=== PATIENT | male | born 2000 | race Two or more races ===

== ENCOUNTER 2023-05-04 00:53 | Emergency (ER) | payer MEDICAID ==
[~2023-05-04] VITALS: Ht 157.5 cm; Wt 56.0 kg
[2023-05-04 00:57] VITALS: TEMP 98.7
[2023-05-04 02:54] LABS: APPEARANCE,URINE CLEAR (CLEAR); BILIRUBIN,URINE NEGATIVE (NEGATIVE); GLUCOSE, URINE (UA) NEGATIVE (NEGATIVE); KETONES,URINE NEGATIVE (NEGATIVE); LEUKOCYTE ESTERASE ,URINE NEGATIVE (NEGATIVE); NITRATE,URINE NEGATIVE (NEGATIVE); OCCULT BLOOD,URINE NEGATIVE (NEGATIVE); PROTEIN,URINE NEGATIVE (NEGATIVE); SPECIFIC GRAVITIY, URINE 1.021 (1.003-1.030); UROBILINOGEN,URINE <=1.0 mg/dL (<=1.0)
[2023-05-04] MEDS ORDERED: IBUP-1492 PO (03:24)
[2023-05-04] MEDS ORDERED: LEVO-72 PO (03:24)
[2023-05-04] MEDS ORDERED: IBUPROFEN 600 MG TABLET PO ONE (03:30)
[2023-05-04] MEDS ORDERED: LEVOFLOXACIN 500 MG TABLET PO ONE (03:30)
[2023-05-04 03:37] VITALS: BP 138/70; PULSE 78; RESP 18
== END 2023-05-04 03:39 | disposition home or self-care (01) ==
LOC: EMS 00:54
DX: N45.1 Epididymitis (principal); F12.90 Cannabis use, unspecified, uncomplicated; Z88.8 Allergy status to other drugs, medicaments and biological substances
CPT/HCPCS: 81003; 87430; 87491; 87591; 99283

== ENCOUNTER 2023-05-13 21:18 | Emergency (ER) | payer MEDICAID ==
[~2023-05-13 21:18] MED LIST: IBUP-1492 PO; LEVO-72 PO
== END 2023-05-13 21:19 | disposition left against medical advice (07) ==
LOC: EMS 21:19
DX: Z53.21 Procedure and treatment not carried out due to patient leaving prior to being seen by health care provider (principal)

== ENCOUNTER 2023-12-08 10:29 | Emergency (ER) | payer MEDICAID ==
[~2023-12-08] VITALS: Ht 157.5 cm; Wt 68.2 kg
[2023-12-08 12:58] LABS: BASOPHILS % (AUTO) 1.4 % (0.0-2.0); EOSINOPHILS % (AUTO) 1.4 % (1.0-6.0); HEMATOCRIT 47.9 % (41-53); HEMOGLOBIN 15.7 g/dL (13.5-17.5); LYMPHOCYTES # (AUTO) 1.8 K/uL (1.0-4.8); LYMPHOCYTES % (AUTO) 40.3 % (22.0-44.0); MEAN CORPUSCULAR HEMOGLOBIN 29.5 pg (26.0-34.0); MEAN CORPUSCULAR HGB CONC 32.7 G/dL (31.0-37.0); MEAN CORPUSCULAR VOLUME 90 fL (80-100); MONOCYTES # (AUTO) 0.4 K/uL (0.1-1.0); MONOCYTES % (AUTO) 8.5 % (2.0-9.0); NEUTROPHILS # (AUTO) 2.2 K/uL (1.8-7.7); NEUTROPHILS % (AUTO) 48.4 % (40.0-70.0); PLATELET COUNT (AUTO) 210 K/uL (150-450); RED BLOOD CELL COUNT(AUTO) 5.32 MIL/uL (4.50-5.90); RED CELL DISTRIBUTION WIDTH 13.1 % (11.5-14.5); WHITE BLOOD COUNT (AUTO) 4.5 K/uL (4.5-11.0)
[2023-12-08 13:11] LABS: ANION GAP 5 mmol/L (8-16); CARBON DIOXIDE 29 mmol/L (22-29); CHLORIDE 103 mmol/L (98-107); CREATININE 0.57 mg/dL (0.60-1.30); GLOMERULAR FILTR. RATE CALC > 60 mL/min (>60); GLUCOSE,RANDOM 91 mg/dL (70-110); POTASSIUM 4.4 mmol/L (3.5-5.1); SODIUM SERUM 137 mmol/L (136-145); UREA NITROGEN, BLOOD 11 mg/dL (7-18)
[2023-12-08 13:22] LABS: ALANINE AMINOTRANSFERASE 67 U/L (12-78); ALBUMIN 4.4 g/dL (3.4-5.0); ALKALINE PHOSPHATASE 98 U/L (46-116); ASPARTATE AMINOTRANSFERASE 37 U/L (15-37); BILIRUBIN,TOTAL 0.4 mg/dL (0.1-1.0); TOTAL PROTEIN, SERUM 8.1 g/dL (6.4-8.2)
[2023-12-08 15:03] VITALS: BP 116/74; PULSE 60; RESP 18; TEMP 98
== END 2023-12-08 15:40 | disposition home or self-care (01) ==
LOC: EMS 10:29
DX: M25.562 Pain in left knee (principal); F12.90 Cannabis use, unspecified, uncomplicated
CPT/HCPCS: 80053; 85025; 85379; 93971; 99284